=== PATIENT | female | born 1970 | race Caucasian/White ===

== ENCOUNTER 2020-06-21 11:29 | Outpatient (REF) | payer MEDICAID, SELFPAY | END 2020-06-21 11:30 | disposition home or self-care (01) | LOC: HO.LAB 11:29 | PROVIDERS: Visit Provider Internal Medicine | DX: Z20.822 Contact with and (suspected) exposure to COVID-19 (principal) | CPT/HCPCS: C9803; U0003; U0005 ==

== ENCOUNTER 2020-07-12 09:27 | Outpatient (REF) | payer MEDICAID, SELFPAY | END 2020-07-12 09:28 | disposition home or self-care (01) | LOC: HO.LAB 09:27 | PROVIDERS: Visit Provider Internal Medicine | DX: Z20.822 Contact with and (suspected) exposure to COVID-19 (principal) | CPT/HCPCS: C9803; U0003; U0005 ==

== ENCOUNTER 2020-10-04 17:46 | Emergency (ER) | payer MEDICAID, SELFPAY ==
[2020-10-04 18:13] VITALS: BP 139/91; PULSE 99; RESP 16; TEMP 36.7; O2SAT 97; BMI 25.0
[2020-10-04 20:23] LABS: COVID-19 Test Negative (Negative); IDNOW Serial# 9DD0AD1C
--- NOTE | 2020-10-04 20:29 | ED.URI ---
HPI - URI/Sore Throat General Chief Complaint: Upper Respiratory Symptoms Stated Complaint: Headache/ fever last night, Cough Time Seen by Provider: 10/04/20 20:27 Source: patient Mode of arrival: ambulatory Limitations: no limitations History of Present Illness HPI Narrative: Patient is a 49-year-old female the past medical history of asthma who presents with 2 days of sore throat, dry cough, body aches, chest tightness but states she has been eating and drinking somewhat normally. She denies any nausea or vomiting but did have 1 episode of diarrhea 4 days ago which has since resolved. She is not vaccinated against COVID. Related Data Allergies Allergy/AdvReac Type Severity Reaction Status Date / Time vancomycin [VANCOMYCIN] Allergy Intermediate HIVES Verified 10/04/20 18:12 Review of Systems Review of Systems: Yes all other systems are reviewed and are negative [facility] Past Medical History Medical History Asthma HIV (human immunodeficiency virus infection) Social History Social History Advance Directives: No Advance Directives Information Provided: No Patient : No Physical Exam Vital Signs: Vital Signs: Last Vital Signs Temp 98.0 F 10/04/20 18:13 Pulse 99 10/04/20 18:13 Resp 16 10/04/20 18:13 BP 139/91 H 10/04/20 18:13 Pulse Ox 97 10/04/20 18:13 Body Mass Index 25.0 Const: General: cooperative, healthy appearing, comfortable, no acute distress and well developed Orientation/consciousness: patient oriented x3 Limitations: no limitations HENMT: Head: Yes normal to inspection General nose exam: Normal external nose present Face and sinus: Yes normal facial exam and Yes sinus tenderness (Ethmoid) Throat: Yes posterior oropharynx abnormal (Erythematous) Eyes: General: appearance normal, both eyes and all related structures Neck: Neck: Yes normal visual inspection and Yes full ROM Resp: Effort & Inspection: normal respiratory effort and able to speak in complete sentences Auscultation: clear to auscultation bilaterally Skin: General skin exam: no rashes or lesions noted Neuro: General: patient oriented x3 Extrem: General: Yes normal to inspection MDM - URI/Sore Throat Lab Data Attestation: I reviewed the patient's lab results. Labs: Lab Results 10/04/20 Range/Units 19:34 COVID-19 (JONES) Negative (Negative) COVID-19 Clin Com See Note
[2020-10-04 20:45] VITALS: BP 149/84; PULSE 84; RESP 16; TEMP 36.3; O2SAT 98
== END 2020-10-04 21:10 | disposition home or self-care (01) ==
PROVIDERS: Emergency Provider Emergency Medicine Emergency Medical Services
DX: J02.9 Acute pharyngitis, unspecified (principal); M79.10 Myalgia, unspecified site; Z20.822 Contact with and (suspected) exposure to COVID-19; J45.909 Unspecified asthma, uncomplicated; B20 Human immunodeficiency virus [HIV] disease
CPT/HCPCS: 36415; 87635; 99283; 99284

== ENCOUNTER 2021-03-29 21:16 | Emergency (ER) | payer MEDICAID, SELFPAY ==
--- NOTE | ~2021-03-29 | XR_ITS ---
EXAMINATION: XR CHEST CLINICAL INFORMATION: Shortness of breath COMPARISON: 05/29/2018 TECHNIQUE: Frontal view of the chest was obtained. FINDINGS: No significant abnormality is noted involving the heart, lungs, mediastinum, bony thorax or soft tissues. XR/XR chest 1V IMPRESSION: Unremarkable examination.
[2021-03-29 21:19] VITALS: BP 162/92; PULSE 106; RESP 20; TEMP 36.7; O2SAT 100; BMI 27.4
[2021-03-29] MEDS: Acetaminophen 325 MG TABLET 650 MG PO (21:24)
--- NOTE | 2021-03-29 21:53 | ED_ITS ---
HPI - URI/Sore Throat General Chief Complaint: Dyspnea Stated Complaint: SOB/ Covid + Time Seen by Provider: 03/29/21 21:24 Source: patient and casino cashier Mode of arrival: ambulatory Limitations: no limitations History of Present Illness HPI Narrative: 50 yo female unvaccinated hx of asthma and well controlled HIV here with 2 days of headaches, cough, chest tightness. MD elicited complaint: cough and other (headaches, shortness of breath, chest tightness) Pertinent past history: HIV and asthma Onset (ago): day(s) (2) Consistency: constant Severity: moderate Description of mucous: clear Able to tolerate fluids by mouth: Yes Exacerbating factors: other (moving, deep breaths) Relieving factors: nothing Context: other (+ COVID today at [facility]) Associated symptoms: chills, myalgias, headache, cough, chest pain and shortness of breath Treatments prior to arrival: ibuprofen and other (used her inhaler) Related Data Previous Rx's Medication Instructions Recorded prednisone 20 mg tablet 40 mg PO DAILY 4 Days #8 tab 03/29/21 Allergies Allergy/AdvReac Type Severity Reaction Status Date / Time vancomycin Allergy Intermediate HIVES Verified 03/29/21 21:18 [VANCOMYCIN] Review of Systems Verdana 4l Review of Systems: Verdana 4d Verdana 4d Constitutional : No Fever, pos Chills ENT/Mouth : No Hoarseness, No sore throat, No Rhinorrhea Eyes: No Redness, No Discharge, No Vision Changes Cardiovascular : pos Chest Pain, positive SOB, positive Dyspnea on Exertion, No Edema RespiratoryRespiratory : positive Cough, No Sputum, positive Wheezing, Gastrointestinal : No Nausea, No Vomiting, No Diarrhea, No abdominal Pain Genitourinary : No Dysuria, No Hematuria Musculoskeletal : No joint pain, pos Myalgias Skin : No rash Neuro : No Weakness, No Numbness, pos Headache Psych : No anxiety, depression Heme/Lymph: No Bruising, No Bleeding Endocrine : No Polyuria, No Polydipsia All other systems reviewed and are negative PMFSH Past Medical History Attestation statement: The following information was validated with the patient. Medical History Asthma HIV (human immunodeficiency virus infection) Social History Social History (Updated 03/29/21 @ 22:18 by Joanne Bliss DO) Patient Tobacco Use Status: Never used Tobacco Advance Directives: No Advance Directives Information Provided: No Patient : No Physical Exam Verdana 4l Vital Signs: Verdana 4d Verdana 4d Vital Signs: Verdana 4d Verdana 4Bd Last Vital Signs Verdana 4d Auto Body Estimator New 4d Auto Body Estimator New 4d Temp 98.1 F 03/29/21 21:19 Auto Body Estimator New 4d Pulse 106 H 03/29/21 21:19 Auto Body Estimator New 4d Resp 20 03/29/21 21:19 BP 162/92 H 03/29/21 21:19 Pulse Ox 100 03/29/21 21:19 BMI result Body Mass Index 27.4 Appearance: Alert. Oriented X3. No acute distress. Eyes: Pupils equal, round and reactive to light. ENT: Pharynx normal. Neck: Normal inspection. Neck supple. CVS: Normal heart rate and rhythm. Pulses normal. Respiratory: No respiratory distress. Breath sounds normal. Abdomen: Soft and nontender. Skin: Skin warm and dry. Normal skin color. Normal skin turgor. Extremities: No lower extremity edema. No calf ttp Neuro: Oriented X 3. No motor deficit. No sensory deficit. Course Course Course Narrative: negative workup 100% on RA stable for DC mAb form filled out and faxed - patient notified this was to be done. MDM - URI/Sore Throat MDM Narrative Medical decision making narrative: 50 yo female unvaccinated with hx of asthma and HIV - 100% on RA, here with c/o chest pain and dyspnea all day at this time given COVID status could be part of illness will need troponin, CXR, ddimer - likely start on steroids given increased use of INH at home though no wheezes here. Dispo per results and workup. Lab Data Result diagrams: 03/29/21 22:09 03/29/21 22:09 Labs: Lab Results 03/29/21 03/29/21 03/29/21 Range/Units 22:09 22:09 22:09 WBC 5.8 (4.8-10.8) X10*3/uL RBC 4.52 (4.20-5.50) X10*6/uL Hgb 12.7 (12.0-16.0) g/dl Hct 38.4 (37.0-47.0) % MCV 85.0 (80.0-98.0) fL MCH 28.1 (27.0-33.0) pg MCHC 33.1 (31.0-35.0) g/dl RDW 12.1 (11.0-16.0) % Plt Count 308 (160-400) X10*3/uL MPV 10.0 (9.4-12.3) fL Immature Gran % (Auto) 0.3 (0.0-0.4) % Neut % (Auto) 64.1 (45-73) % Lymph % (Auto) 25.3 (20-40) % [place] % (Auto) 9.5 (2-11) % Eos % (Auto) 0.3 (0-4) % Baso % (Auto) 0.5 (0-2) % Lymph # (Auto) 1.5 (1.2-4.9) X10*3/uL [place] # (Auto) 0.6 (0.1-1.2) X10*3/uL Eos # (Auto) 0.0 (0.0-0.4) X10*3/uL Baso # (Auto) 0.0 (0.0-0.2) X10*3/uL Abs Immat Gran (auto) 0.02 (0.00-0.03) X10*3/uL Absolute Neuts (auto) 3.7 (2.0-8.3) x10*3/uL Absolute Nucleated RBC 0.000 (0.0-0.012) X10*3/uL Nucleated RBC % (auto) 0.0 (0.0-0.2) /100WBC D-Dimer High Sensitivty NG/ML Sodium 136 (135-145) mmol/L Potassium 3.6 (3.3-5.1) mmol/L Chloride 100 (96-108) mmol/L Carbon Dioxide 26 (22-29) mmol/L Anion Gap 14 (12-20) BUN 12 (9-16) mg/dL Creatinine 1.06 (0.5-1.4) mg/dL Estim Creat Clear Calc 56.1 Estimated GFR 54 Random Glucose 112 (60-115) mg/dL Calcium 9.6 (8.4-10.2) mg/dL Troponin I High Sens < 3.5 (<3.5-17.0) ng/L 03/29/21 Range/Units 22:09 WBC (4.8-10.8) X10*3/uL RBC (4.20-5.50) X10*6/uL Hgb (12.0-16.0) g/dl Hct (37.0-47.0) % MCV (80.0-98.0) fL MCH (27.0-33.0) pg MCHC (31.0-35.0) g/dl RDW (11.0-16.0) % Plt Count (160-400) X10*3/uL MPV (9.4-12.3) fL Immature Gran % (Auto) (0.0-0.4) % Neut % (Auto) (45-73) % Lymph % (Auto) (20-40) % [place] % (Auto) (2-11) % Eos % (Auto) (0-4) % Baso % (Auto) (0-2) % Lymph # (Auto) (1.2-4.9) X10*3/uL [place] # (Auto) (0.1-1.2) X10*3/uL Eos # (Auto) (0.0-0.4) X10*3/uL Baso # (Auto) (0.0-0.2) X10*3/uL Abs Immat Gran (auto) (0.00-0.03) X10*3/uL Absolute Neuts (auto) (2.0-8.3) x10*3/uL Absolute Nucleated RBC (0.0-0.012) X10*3/uL Nucleated RBC % (auto) (0.0-0.2) /100WBC D-Dimer High Sensitivty < 150 NG/ML Sodium (135-145) mmol/L Potassium (3.3-5.1) mmol/L Chloride (96-108) mmol/L Carbon Dioxide (22-29) mmol/L Anion Gap (12-20) BUN (9-16) mg/dL Creatinine (0.5-1.4) mg/dL Estim Creat Clear Calc Estimated GFR Random Glucose (60-115) mg/dL Calcium (8.4-10.2) mg/dL Troponin I High Sens (<3.5-17.0) ng/L ECG Data Attestation: I personally reviewed and interpreted this ECG as follows: ECG interpretation date: 03/29/21 ECG interpretation time: 22:20 Interpretation: Rate: 78 Rhythm: NSR [place]: normal Normal P waves. Normal KEISHA. Normal QRS complex. ST T wave : normal no JCARLOS qTC: normal prior studies: no acute ischemia The study has been interpreted contemporaneously by me. . Discharge Plan Discharge Clinical Impression: COVID-19 Patient Disposition: Home, Self-Care Instructions: COVID-19 (Coronavirus Disease 2019) (ED) Additional Instructions: return to ED for any worsening symptoms or concerns controlar tate respiraci?n. si le falta tanto el aire que no puede caminar hasta el ba?o, busque atenci?n m?dica Prescriptions: New prednisone 20 mg tablet 40 mg PO DAILY 4 Days Qty: 8 0RF Stand Alone Forms: Work/School Release Interventions: ED Discharge Assessment Last Done: 03/29/21 23:06 Discharge Date/Time: 03/29/21 23:06 Print Language: Sammarinese
--- NOTE | 2021-03-29 22:01 | ECG_ITS ---
Test Reason : DYSPNEA Blood Pressure : / mmHG Vent. Rate : 078 BPM Atrial Rate : 078 BPM P-R Int : 150 ms QRS Dur : 080 ms QT Int : 390 ms P-R-T Axes : 063 080 058 degrees QTc Int : 444 ms Normal sinus rhythm Normal ECG No previous ECGs available Referred By: Joanne Bliss Electronically Signed By:RAMON EVANGELISTA MD
[2021-03-29 22:14] LABS: MANUAL DIFF FLAG NO
[2021-03-29 22:15] LABS: Basophils Percent Auto 0.5 % (0-2); Eosinophils Percent Auto 0.3 % (0-4); Hematocrit 38.4 % (37.0-47.0); Hemoglobin 12.7 g/dl (12.0-16.0); Imm Gran Abs Auto 0.02 X10*3/uL (0.00-0.03); Imm Gran Pct Auto 0.3 % (0.0-0.4); Lymphocytes Absolute Auto 1.5 X10*3/uL (1.2-4.9); Lymphocytes Percent Auto 25.3 % (20-40); Mean Corpuscular HGB Conc 33.1 g/dl (31.0-35.0); Mean Corpuscular Hemoglobin 28.1 pg (27.0-33.0); Monocytes Absolute Auto 0.6 X10*3/uL (0.1-1.2); Monocytes Percent Auto 9.5 % (2-11); Neutrophils Absolute Auto 3.7 x10*3/uL (2.0-8.3); Neutrophils Percent Auto 64.1 % (45-73); Platelet Count 308 X10*3/uL (160-400); Red Blood Count 4.52 X10*6/uL (4.20-5.50); Red Cell Distribution Width 12.1 % (11.0-16.0); White Blood Count 5.8 X10*3/uL (4.8-10.8)
[2021-03-29 22:26] LABS: D Dimer High Sensitivity < 150 NG/ML
[2021-03-29 22:29] LABS: Anion Gap 14 (12-20); Blood Urea Nitrogen 12 mg/dL (9-16); Calcium 9.6 mg/dL (8.4-10.2); Carbon Dioxide 26 mmol/L (22-29); Chloride 100 mmol/L (96-108); Creatinine Clr Calc Pharmacy 56.1; Estimated Glomerular Filt Rate 54; Glucose Random 112 mg/dL (60-115); Potassium 3.6 mmol/L (3.3-5.1); Sodium 136 mmol/L (135-145)
[2021-03-29 22:36] LABS: Troponin-I High Sensitivity < 3.5 ng/L (<3.5-17.0)
[2021-03-29] MEDS: predniSONE 20 MG TABLET 40 MG PO (22:59)
== END 2021-03-29 23:06 | disposition home or self-care (01) ==
PROVIDERS: Emergency Provider Emergency Medicine
DX: U07.1 COVID-19 (principal); R51.9 Headache, unspecified; J45.909 Unspecified asthma, uncomplicated; B20 Human immunodeficiency virus [HIV] disease
CPT/HCPCS: 36415; 71045; 80048; 84484; 85025; 85379; 93005; 99283

== ENCOUNTER 2022-02-04 12:57 | Outpatient (REF) | payer MEDICAID, SELFPAY ==
--- NOTE | ~2022-02-04 | MR_ITS ---
EXAMINATION: MR BRAIN WITHOUT CONTRAST CLINICAL INFORMATION: 1 month of worsening dizziness COMPARISON: None TECHNIQUE: Multiplanar multisequence MR imaging of the brain was obtained without intravenous contrast. FINDINGS: There is no acute infarct on diffusion-weighted imaging. There is no intracranial hemorrhage on iron-sensitive imaging. No extra-axial collection or mass effect/herniation. Normal parenchymal signal characteristics. No hydrocephalus. The ventricles are normal in morphology and size. The major flow voids at the skull base are preserved. The midline structures are normal. The cerebellar tonsils are normally positioned. The craniocervical junction is normal. Marrow signal is within normal limits. There is a large nasal septal defect measuring 2.5 cm anteroposteriorly. Left maxillary sinus mucosal thickening. MR/MR head/brain wo con IMPRESSION: 1. Unremarkable noncontrast MRI of the brain. 2. Large defect of the nasal septum.
== END 2022-02-04 12:58 | disposition home or self-care (01) ==
LOC: HO.MRI 12:57
PROVIDERS: Visit Provider Family Medicine
DX: R42 Dizziness and giddiness (principal)
CPT/HCPCS: 70551

== ENCOUNTER 2022-02-21 12:05 | Outpatient (REF) | payer MEDICAID, SELFPAY | END 2022-02-21 12:06 | disposition home or self-care (01) | LOC: HO.MAMMO 12:05 | PROVIDERS: Visit Provider Family Medicine | DX: Z12.31 Encounter for screening mammogram for malignant neoplasm of breast (principal) | CPT/HCPCS: 77063; 77067 ==

== ENCOUNTER 2022-03-25 15:25 | Outpatient (REF) | payer MEDICAID, SELFPAY ==
[2022-03-25 16:58] LABS: Alanine Aminotransferase 21 U/L (0-31); Albumin Level 4.1 g/dL (3.5-5.0); Alkaline Phosphatase 118 U/L (39-117); Aspartate Amino Transferase 30 U/L (5-31); Bilirubin Direct 0.4 mg/dL (0.0-0.5); Total Protein 7.8 g/dL (6.5-8.0)
[2022-03-26 12:53] LABS: Absolute CD4 Count 475 cells/uL (490-1740); Absolute CD8 Count 870 cells/uL (180-1170); Absolute Lymphocytes 1809 cells/uL (850-3900); CD4 CD8 Ratio 0.55 (0.86-5.00); Percent CD4 Cells 26 % (30-61); Percent CD8 Cells 48 % (12-42)
== END 2022-03-25 15:26 | disposition home or self-care (01) ==
LOC: HO.LAB 15:25
PROVIDERS: Psychiatry & Neurology Neurology; PCP Family Medicine; Visit Provider Internal Medicine
DX: B20 Human immunodeficiency virus [HIV] disease (principal); R42 Dizziness and giddiness
CPT/HCPCS: 36415; 80076; 86360

== ENCOUNTER 2022-05-08 07:50 | Emergency (ER) | payer MEDICAID, SELFPAY ==
--- NOTE | ~2022-05-08 | XR_ITS ---
EXAMINATION: XR CHEST CLINICAL INFORMATION: Shortness of breath COMPARISON: 03/29/2021 TECHNIQUE: Frontal view of the chest was obtained. FINDINGS: No significant abnormality is noted involving the heart, lungs, mediastinum, bony thorax or soft tissues. Some minimal left basilar atelectasis is present. XR/XR chest 1V IMPRESSION: No acute intrathoracic disease.
[2022-05-08 08:08] VITALS: BP 142/96; PULSE 83; RESP 28; TEMP 36.6; O2SAT 95; BMI 27.4
[2022-05-08 08:13] VITALS: PULSE 85; RESP 22; O2SAT 100
[2022-05-08 08:19] LABS: MANUAL DIFF FLAG NO
[2022-05-08] MEDS: Magnesium Sulfate/H2O 2 GM/50 ML PIGGYBACK IV (08:21)
[2022-05-08] MEDS: methylPREDNISolone Sod Succ 125 MG/2 ML VIAL IVPUSH (08:21)
--- NOTE | 2022-05-08 08:21 | ED.URI ---
HPI - URI/Sore Throat General Chief Complaint: Upper Respiratory Symptoms Stated Complaint: Asthma Time Seen by Provider: 05/08/22 08:06 History of Present Illness HPI Narrative: Patient is a 51 year female with a history of asthma with a history HIV currently undergoing retroviral therapy been compliant with medication presented today with having a sudden onset of shortness of breath. Patient has been admitted to the hospital a few years ago. Never been intubated. She is from home. Positive coughing congestion upper respiratory symptoms positive shortness of breath. Patient unable to give detailed history secondary to patient's shortness of breath Related Data Previous Rx's Medication Instructions Recorded prednisone 20 mg tablet 40 mg PO DAILY 4 days #8 tabs 03/29/21 prednisone 20 mg tablet 40 mg PO DAILY #10 tabs 05/08/22 Allergies Allergy/AdvReac Type Severity Reaction Status Date / Time vancomycin [VANCOMYCIN] Allergy Intermediate HIVES Verified 03/29/21 21:18 Review of Systems Review of Systems: Unable to provide review of systems secondary to patient's condition [facility] Past Medical History Attestation statement: The following information was validated with the patient. Medical History Asthma HIV (human immunodeficiency virus infection) Social History Social History Patient Tobacco Use Status: Never used Tobacco Advance Directives: No Advance Directives Information Provided: Yes Physical Exam Vital Signs: Vital Signs: Last Vital Signs Temp 98 F 05/08/22 08:08 Pulse 82 05/08/22 09:59 Resp 17 05/08/22 09:59 BP 125/75 05/08/22 09:59 Pulse Ox 99 05/08/22 09:59 O2 Del Method 05/08/22 09:10 BMI result Body Mass Index 27.4 Appearance: Agitated shortness of breath Eyes: Pupils equal, round and reactive to light. ENT: Pharynx normal. Neck: Normal inspection. Neck supple. No lymph nodes noted. No crepitus. Positive retraction CVS: Normal heart rate and rhythm. Pulses normal. Normal S1 and S2 Respiratory: Positive increased work of breathing minimal wheezing noted. Moving air. Abdomen: Soft and nontender. No rigidity. No distention. good BS x4 Skin: Skin warm and dry. Normal skin color. Normal skin turgor. Extremities: No lower extremity edema. Neurovascular intact to all extremities. No Lacerations. No Rash Neuro: No motor deficit. No sensory deficit. Moving all extermities. No slurred speech Medications Administered Discontinued Medications Generic Name Dose Route Start Last Admin Trade Name Taylor PRN Reason Stop Dose Admin Albuterol Sulfate 10 mg/ 0 mg 05/08/22 08:13 05/08/22 08:23 Ipratropium [place] 0.5 mg INHALE 05/08/22 08:14 2.5 each ONCE ONE Administration Guaifenesin/Codeine Phosphate 10 ml 05/08/22 09:51 05/08/22 09:58 Guaifen/Codeine Sf 200/20/10ml 10 Ml Liquid PO 05/08/22 09:52 10 ml ONCE ONE Administration Magnesium Sulfate 2 gm in 50 mls @ 150 mls/hr 05/08/22 08:13 05/08/22 08:21 Magnesium Sulfate/H2o IV 05/08/22 08:32 150 mls/hr ONCE ONE Administration Methylprednisolone Sodium Succinate 125 mg 05/08/22 08:13 05/08/22 08:21 Methylprednisolone Sod Succ 125 Mg/2 Ml Vial IVPUSH 05/08/22 08:14 125 mg ONCE ONE Administration Medical Decision Making Medical Decision Making [facility] Narrative: Positive wheezing positive shortness of breath very abrupt in onset associated with coughing. A chest x-ray will be obtained. Patient has a history of asthma. History and symptoms not consistent with sepsis. Will start patient on albuterol neb treatment. Steroid. Magnesium. Monitor extremely closely. Chest x-ray to rule out a pneumonia, pneumothorax. Patient's chest x-ray showed no pneumonia no pneumothorax. Because of the extreme shortness of breath a continuous neb was given. Patient monitored very closely. Symptoms improved. Now ambulating without any difficulty. On repeat check patient's lungs are clear. No retraction. Patient wants to go home. Was fall patient on steroid on an outpatient basis. Consider COVID RSV flu. Patient flu swab RSV COVID were all negative In stable condition. Differential Diagnosis Differential Diagnoses: The differential diagnosis associated with the presentation includes Pneumonia, pneumothorax, asthma, congestive heart failure, Admission/Observation Consideration of admission/observation: Escalation of care including admission/observation considered Considered admission at this point patient's symptoms improved dramatically. Will discharge home Lab Data [facility] Lab Attestation statement: I reviewed the patient's lab results. 05/08/22 08:08 05/08/22 08:08 Labs: Lab Results 05/08/22 05/08/22 05/08/22 Range/Units 08:08 08:08 08:24 WBC 6.7 (4.8-10.8) X10*3/uL RBC 5.33 (4.20-5.50) X10*6/uL Hgb 15.2 (12.0-16.0) g/dl Hct 47.1 H D (37.0-47.0) % MCV 88.4 (80.0-98.0) fL MCH 28.5 (27.0-33.0) pg MCHC 32.3 (31.0-35.0) g/dl RDW 12.7 (11.0-16.0) % Plt Count 284 (160-400) X10*3/uL MPV 9.6 (9.4-12.3) fL Immature Gran % (Auto) 0.6 H (0.0-0.4) % Neut % (Auto) 56.6 (45-73) % Lymph % (Auto) 29.9 (20-40) % [place] % (Auto) 9.6 (2-11) % Eos % (Auto) 2.4 (0-4) % Baso % (Auto) 0.9 (0-2) % Lymph # (Auto) 2.0 (1.2-4.9) X10*3/uL [place] # (Auto) 0.6 (0.1-1.2) X10*3/uL Eos # (Auto) 0.2 (0.0-0.4) X10*3/uL Baso # (Auto) 0.1 (0.0-0.2) X10*3/uL Abs Immat Gran (auto) 0.04 H (0.00-0.03) X10*3/uL Absolute Neuts (auto) 3.8 (2.0-8.3) x10*3/uL Absolute Nucleated RBC 0.000 (0.0-0.012) X10*3/uL Nucleated RBC % (auto) 0.0 (0.0-0.2) /100WBC Sodium 138 (135-145) mmol/L Potassium 4.4 D (3.3-5.1) mmol/L Chloride 101 (96-108) mmol/L Carbon Dioxide 25 (22-29) mmol/L Anion Gap 16 (12-20) BUN 15 (9-16) mg/dL Creatinine 1.30 (0.5-1.4) mg/dL Estim Creat Clear Calc 45.2 Estimated GFR 43 Random Glucose 101 (60-115) mg/dL Calcium 9.4 (8.4-10.2) mg/dL Influenza Type A (PCR) NEGATIVE (Negative) Influenza Type B (PCR) NEGATIVE (Negative) RSV RNA Qual (PCR) NEGATIVE (Negative) SARS-CoV-2 RNA (RT-PCR) NEGATIVE (Negative) Independent Interpretation I performed an independent interpretation of an: Plain X-Ray Interpretation: No acute infiltrate External Record Review External record reviewed: Inpatient record Critical Care Time Critical Care Time Critical Care Time: Yes Total Critical Care Time: 40 Attestation: I have personally provided 40 minutes of critical care time exclusive of time spent on separately billable procedures. Time includes review of lab data, radiology results, discussion with consultants, and monitoring for potential decompensation. Interventions were performed as documented above Discharge Plan Discharge Clinical Impression: Asthma Patient Disposition: Home, Self-Care Instructions: Asthma (ED) Prescriptions: New prednisone 20 mg tablet 40 mg PO DAILY Qty: 10 0RF No Action prednisone 20 mg tablet 40 mg PO DAILY 4 Days Qty: 8 0RF Referrals: Jessica Goldstein MD [Primary Care Provider] - Stand Alone Forms: Work/School Release
[2022-05-08 08:23] LABS: Basophils Absolute Auto 0.1 X10*3/uL (0.0-0.2); Basophils Percent Auto 0.9 % (0-2); Eosinophils Absolute Auto 0.2 X10*3/uL (0.0-0.4); Eosinophils Percent Auto 2.4 % (0-4); Hematocrit 47.1 % (37.0-47.0); Hemoglobin 15.2 g/dl (12.0-16.0); Imm Gran Abs Auto 0.04 X10*3/uL (0.00-0.03); Imm Gran Pct Auto 0.6 % (0.0-0.4); Lymphocytes Percent Auto 29.9 % (20-40); Mean Corpuscular HGB Conc 32.3 g/dl (31.0-35.0); Mean Corpuscular Hemoglobin 28.5 pg (27.0-33.0); Mean Corpuscular Volume 88.4 fL (80.0-98.0); Mean Platelet Volume 9.6 fL (9.4-12.3); Monocytes Absolute Auto 0.6 X10*3/uL (0.1-1.2); Monocytes Percent Auto 9.6 % (2-11); Neutrophils Absolute Auto 3.8 x10*3/uL (2.0-8.3); Neutrophils Percent Auto 56.6 % (45-73); Platelet Count 284 X10*3/uL (160-400); Red Blood Count 5.33 X10*6/uL (4.20-5.50); Red Cell Distribution Width 12.7 % (11.0-16.0); White Blood Count 6.7 X10*3/uL (4.8-10.8)
[2022-05-08 08:34] LABS: Anion Gap 16 (12-20); Blood Urea Nitrogen 15 mg/dL (9-16); Calcium 9.4 mg/dL (8.4-10.2); Carbon Dioxide 25 mmol/L (22-29); Chloride 101 mmol/L (96-108); Creatinine Clr Calc Pharmacy 45.2; Estimated Glomerular Filt Rate 43; Glucose Random 101 mg/dL (60-115); Potassium 4.4 mmol/L (3.3-5.1); Sodium 138 mmol/L (135-145)
[2022-05-08 09:05] VITALS: PULSE 88; RESP 20; O2SAT 95
[2022-05-08 09:10] VITALS: O2SAT 100
--- NOTE | 2022-05-08 09:11 | PC.NURSE ---
ls clear except for lll crackles, sr on monitor, skin wpd, reports improvement. no sob
[2022-05-08 09:24] LABS: Influenza A PCR NEGATIVE (Negative); Influenza B PCR NEGATIVE (Negative); Resp Syncy Virus RNA Qual PCR NEGATIVE (Negative); SARS COV2 PCR INHOUSE NEGATIVE (Negative)
[2022-05-08] MEDS: guaiFEN/Codeine SF 200/20/10ML 10 ML LIQUID PO (09:58)
[2022-05-08 09:59] VITALS: BP 125/75; PULSE 82; RESP 17; O2SAT 99
[2022-05-08 10:45] VITALS: PULSE 81; RESP 17; O2SAT 99
== END 2022-05-08 10:54 | disposition home or self-care (01) ==
PROVIDERS: Emergency Provider Emergency Medicine Emergency Medical Services; PCP Family Medicine
DX: J45.909 Unspecified asthma, uncomplicated (principal); R06.02 Shortness of breath; Z20.822 Contact with and (suspected) exposure to COVID-19; Z20.828 Contact with and (suspected) exposure to other viral communicable diseases; B20 Human immunodeficiency virus [HIV] disease; Z79.899 Other long term (current) drug therapy
CPT/HCPCS: 0241U; 71045; 80048; 85025; 94640; 96374; 96375; 99284; 99285; J2930; J3475

== ENCOUNTER 2023-01-21 11:21 | Outpatient (REF) | payer MEDICAID, SELFPAY ==
[2023-01-21 13:21] LABS: MANUAL DIFF FLAG NO
[2023-01-21 13:24] LABS: Appearance Urine Cloudy; Color Urine Yellow; Glucose Urine UA Negative (Negative); Leukocyte Esterase Urine Large (3+) (Negative); Nitrite Urine Positive (Negative); PH 5.5 (5.0-9.0); Specific Gravity - Urine 1.015 (1.005-1.025); UMIC TRIGGER UA YES; Urine Blood Trace (Negative); Urine Ketones Negative (Negative); Urine Protein Trace mg/dL (Neg-Trace)
[2023-01-21 13:27] LABS: Bacteria Urine 4+ (None Seen); Hyaline Casts Urine 0-2 /LPF (0-2); RBC Urine 0-2 /HPF (0-2); WBC Urine >50 /HPF (0-5)
[2023-01-21 13:30] LABS: Basophils Percent Auto 0.7 % (0-2); Eosinophils Absolute Auto 0.2 X10*3/uL (0.0-0.4); Eosinophils Percent Auto 3.6 % (0-4); Hematocrit 42.2 % (37.0-47.0); Hemoglobin 13.4 g/dl (12.0-16.0); Imm Gran Abs Auto 0.03 X10*3/uL (0.00-0.03); Imm Gran Pct Auto 0.7 % (0.0-0.4); Lymphocytes Absolute Auto 1.4 X10*3/uL (1.2-4.9); Lymphocytes Percent Auto 33.7 % (20-40); Mean Corpuscular HGB Conc 31.8 g/dl (31.0-35.0); Mean Corpuscular Hemoglobin 27.2 pg (27.0-33.0); Mean Corpuscular Volume 85.8 fL (80.0-98.0); Mean Platelet Volume 10.5 fL (9.4-12.3); Monocytes Absolute Auto 0.5 X10*3/uL (0.1-1.2); Monocytes Percent Auto 10.8 % (2-11); Neutrophils Absolute Auto 2.1 x10*3/uL (2.0-8.3); Neutrophils Percent Auto 50.5 % (45-73); Platelet Count 232 X10*3/uL (160-400); Red Blood Count 4.92 X10*6/uL (4.20-5.50); Red Cell Distribution Width 14.7 % (11.0-16.0); White Blood Count 4.2 X10*3/uL (4.8-10.8)
[2023-01-21 13:43] LABS: Cholesterol 173 mg/dL (<200); HDL Cholesterol 41 mg/dL (>40); LDL Cholesterol Calculated 103 mg/dL (<100); Triglycerides 147 mg/dL (<150)
[2023-01-21 13:47] LABS: Alanine Aminotransferase 49 U/L (0-31); Albumin Level 3.6 g/dL (3.5-5.0); Alkaline Phosphatase 116 U/L (39-117); Anion Gap 10 (12-20); Aspartate Amino Transferase 76 U/L (5-31); Bilirubin Total 0.6 mg/dL (0.0-1.0); Blood Urea Nitrogen 7 mg/dL (9-16); Calcium 9.7 mg/dL (8.4-10.2); Carbon Dioxide 30 mmol/L (22-29); Chloride 104 mmol/L (96-108); Estimated Glomerular Filt Rate > 60; Glucose Random 100 mg/dL (60-115); Sodium 140 mmol/L (135-145); Total Protein 9.5 g/dL (6.5-8.0)
[2023-01-21 14:07] LABS: Reflex LDLD? No
[2023-01-22 18:09] LABS: HIV RNA PCR Qn Copies 690000 copies/mL (NOT DETECTED); HIV RNA PCR Qn Log Copies 5.84 (NOT DETECTED)
[2023-01-23 22:59] LABS: TS Negative Control Passed; TS Panel A 0; TS Panel B 2; TS Positive Control Passed; TSpotTB Negative (Negative)
[2023-01-24 11:59] LABS: Absolute CD3 Count 1015 cells/uL (840-3060); Absolute CD4 Count 162 cells/uL (490-1740); Absolute CD8 Count 832 cells/uL (180-1170); Absolute Lymphocytes 1264 cells/uL (850-3900); Percent CD3 Cells 80 % (57-85); Percent CD4 Cells 13 % (30-61); Percent CD8 Cells 66 % (12-42)
[2023-01-24 12:34] LABS: RPR Rapid Plasma Reagin NON-REACTIVE (NON-REACTIVE)
== END 2023-01-21 11:22 | disposition home or self-care (01) ==
LOC: HO.HHCL 11:21
PROVIDERS: Visit Provider Internal Medicine
DX: B20 Human immunodeficiency virus [HIV] disease (principal)
CPT/HCPCS: 36415; 80053; 80061; 81001; 85025; 86359; 86360; 86481; 86592; 87536

== ENCOUNTER 2023-05-23 10:40 | Outpatient (REF) | payer MEDICAID, SELFPAY ==
[2023-05-23 11:36] LABS: MANUAL DIFF FLAG NO
[2023-05-23 11:40] LABS: Basophils Absolute Auto 0.1 X10*3/uL (0.0-0.2); Basophils Percent Auto 0.7 % (0-2); Eosinophils Absolute Auto 0.1 X10*3/uL (0.0-0.4); Eosinophils Percent Auto 1.9 % (0-4); Hematocrit 40.9 % (37.0-47.0); Hemoglobin 13.3 g/dl (12.0-16.0); Imm Gran Abs Auto 0.03 X10*3/uL (0.00-0.03); Imm Gran Pct Auto 0.4 % (0.0-0.4); Lymphocytes Absolute Auto 2.3 X10*3/uL (1.2-4.9); Lymphocytes Percent Auto 31.6 % (20-40); Mean Corpuscular HGB Conc 32.5 g/dl (31.0-35.0); Mean Corpuscular Hemoglobin 28.5 pg (27.0-33.0); Mean Corpuscular Volume 87.6 fL (80.0-98.0); Mean Platelet Volume 9.5 fL (9.4-12.3); Monocytes Absolute Auto 0.8 X10*3/uL (0.1-1.2); Monocytes Percent Auto 11.1 % (2-11); Neutrophils Percent Auto 54.3 % (45-73); Platelet Count 300 X10*3/uL (160-400); Red Blood Count 4.67 X10*6/uL (4.20-5.50); Red Cell Distribution Width 13.1 % (11.0-16.0); White Blood Count 7.3 X10*3/uL (4.8-10.8)
[2023-05-23 12:41] LABS: Alanine Aminotransferase 28 U/L (0-31); Albumin Level 4.4 g/dL (3.5-5.0); Alkaline Phosphatase 84 U/L (39-117); Anion Gap 13 (12-20); Aspartate Amino Transferase 35 U/L (5-31); Bilirubin Total 0.8 mg/dL (0.0-1.0); Blood Urea Nitrogen 13 mg/dL (9-16); Calcium 9.9 mg/dL (8.4-10.2); Carbon Dioxide 28 mmol/L (22-29); Chloride 101 mmol/L (96-108); Estimated Glomerular Filt Rate > 60; Glucose Random 81 mg/dL (60-115); Potassium 3.8 mmol/L (3.3-5.1); Sodium 138 mmol/L (135-145); Total Protein 8.9 g/dL (6.5-8.0)
[2023-05-23 12:45] LABS: TSH reflex Free T4 5.52 uIU/mL (0.32-4.0)
[2023-05-24 12:24] LABS: Absolute CD3 Count 1918 cells/uL (840-3060); Absolute CD4 Count 401 cells/uL (490-1740); Absolute CD8 Count 1496 cells/uL (180-1170); Absolute Lymphocytes 2460 cells/uL (850-3900); CD4 CD8 Ratio 0.27 (0.86-5.00); Percent CD3 Cells 78 % (57-85); Percent CD4 Cells 16 % (30-61); Percent CD8 Cells 61 % (12-42)
[2023-05-24 15:33] LABS: HIV RNA PCR Qn Copies <20 DETECTED copies/mL (NOT DETECTED); HIV RNA PCR Qn Log Copies <1.30 DETECTED (NOT DETECTED)
== END 2023-05-23 10:41 | disposition home or self-care (01) ==
LOC: HO.HHCL 10:40
PROVIDERS: Visit Provider Internal Medicine
DX: B20 Human immunodeficiency virus [HIV] disease (principal); E03.9 Hypothyroidism, unspecified
CPT/HCPCS: 36415; 80053; 84439; 84443; 85025; 86359; 86360; 87536

== ENCOUNTER 2023-09-25 11:02 | Outpatient (REF) | payer MEDICAID, SELFPAY ==
[2023-09-26 09:31] LABS: ~HepC Num1 0.22 S/CO (0.00-0.79); ~Hepatitis C Antibody Nonreactive (Nonreactive)
[2023-09-27 16:43] LABS: HIV RNA PCR Qn Copies 635 copies/mL (NOT DETECTED)
[2023-09-30 15:18] LABS: Absolute CD3 Count 1998 cells/uL (840-3060); Absolute CD4 Count 476 cells/uL (490-1740); Absolute CD8 Count 1481 cells/uL (180-1170); Absolute Lymphocytes 2474 cells/uL (850-3900); CD4 CD8 Ratio 0.32 (0.86-5.00); Percent CD3 Cells 81 % (57-85); Percent CD4 Cells 19 % (30-61); Percent CD8 Cells 60 % (12-42)
== END 2023-09-25 11:03 | disposition home or self-care (01) ==
LOC: HO.HHCL 11:02
PROVIDERS: Visit Provider Internal Medicine
DX: B20 Human immunodeficiency virus [HIV] disease (principal)
CPT/HCPCS: 36415; 86359; 86360; 86803; 87536

== ENCOUNTER 2024-01-07 11:10 | Outpatient (REF) | payer MEDICAID, SELFPAY ==
[2024-01-07 13:18] LABS: MANUAL DIFF FLAG NO
[2024-01-07 13:29] LABS: Basophils Absolute Auto 0.1 X10*3/uL (0.0-0.2); Basophils Percent Auto 1.1 % (0-2); Eosinophils Absolute Auto 0.1 X10*3/uL (0.0-0.4); Eosinophils Percent Auto 2.3 % (0-4); Hematocrit 40.4 % (37.0-47.0); Hemoglobin 13.4 g/dl (12.0-16.0); Imm Gran Abs Auto 0.02 X10*3/uL (0.00-0.03); Imm Gran Pct Auto 0.4 % (0.0-0.4); Lymphocytes Absolute Auto 1.8 X10*3/uL (1.2-4.9); Lymphocytes Percent Auto 34.7 % (20-40); Mean Corpuscular HGB Conc 33.2 g/dl (31.0-35.0); Mean Corpuscular Hemoglobin 28.4 pg (27.0-33.0); Mean Corpuscular Volume 85.6 fL (80.0-98.0); Mean Platelet Volume 10.2 fL (9.4-12.3); Monocytes Absolute Auto 0.6 X10*3/uL (0.1-1.2); Monocytes Percent Auto 10.7 % (2-11); Neutrophils Absolute Auto 2.7 x10*3/uL (2.0-8.3); Neutrophils Percent Auto 50.8 % (45-73); Platelet Count 272 X10*3/uL (160-400); Red Blood Count 4.72 X10*6/uL (4.20-5.50); Red Cell Distribution Width 13.3 % (11.0-16.0); White Blood Count 5.3 X10*3/uL (4.8-10.8)
[2024-01-07 13:34] LABS: Estimated Average Glucose 117 mg/dL; Hemoglobin A1C 132.3317 umol/L; Hemoglobin A1c % 5.7 % (<6.0); Total Hemoglobin (HGBA1C) 3410.7443 umol/L
[2024-01-07 14:00] LABS: Alanine Aminotransferase 32 U/L (0-31); Albumin Level 4.1 g/dL (3.5-5.0); Alkaline Phosphatase 109 U/L (39-117); Anion Gap 14 (12-20); Aspartate Amino Transferase 41 U/L (5-31); Bilirubin Total 0.7 mg/dL (0.0-1.0); Blood Urea Nitrogen 14 mg/dL (9-16); Calcium 9.9 mg/dL (8.4-10.2); Carbon Dioxide 26 mmol/L (22-29); Chloride 102 mmol/L (96-108); Estimated Glomerular Filt Rate > 60; Glucose Random 79 mg/dL (60-115); Potassium 3.9 mmol/L (3.3-5.1); Sodium 138 mmol/L (135-145); Total Protein 8.1 g/dL (6.5-8.0)
[2024-01-07 14:01] LABS: TSH reflex Free T4 3.68 uIU/mL (0.32-4.0); Vitamin D 25-OH Total 36.4 ng/mL (>30)
[2024-01-07 14:10] LABS: HBS Num1 9.13 mIU/mL (0-7.99); HBc Num1 0.31 S/CO (0.00-0.79); HBsAGNum1 0.25 S/CO (0.00-0.99); Hepatitis B Core Antibody Nonreactive (Nonreactive); Hepatitis B Surface Antigen Negative (Negative)
[2024-01-07 14:12] LABS: Hepatitis A Antibody IgG REACTIVE (Nonreactive)
[2024-01-07 14:28] LABS: Folate 10.9 ng/mL (> or = 4.0); Vitamin B12 219 pg/mL (200-900)
[2024-01-08 06:10] LABS: HBS Num2 9.37 mIU/mL (0-7.99)
[2024-01-08 06:11] LABS: HBS Num3 9.28 mIU/mL (0-7.99); ~Hepatitis B Surface Antibody GRAYZONE (Nonreactive)
[2024-01-08 08:52] LABS: Mumps Virus IgG Antibody <9.00 AU/mL; Rubeola IgG (Measles) >300.00 AU/mL; Toxoplasma IgG Antibody <7.20 IU/mL; Toxoplasma IgM Antibody <8.00 AU/mL
[2024-01-08 17:43] LABS: HIV RNA PCR Qn Copies 53 copies/mL (NOT DETECTED); HIV RNA PCR Qn Log Copies 1.72 (NOT DETECTED)
[2024-01-08 19:03] LABS: Lyme Blot 1.64 index
[2024-01-08 22:58] LABS: Varicella IgG Antibody 3.06 S/CO
[2024-01-09 07:33] LABS: RPR Rapid Plasma Reagin NON-REACTIVE (NON-REACTIVE)
[2024-01-09 12:30] LABS: Lyme Abs Screen POSITIVE
[2024-01-13 11:54] LABS: 18 KD (IgG) Band NON-REACTIVE; 23 KD (IgG) Band NON-REACTIVE; 23 KD (IgM) Band NON-REACTIVE; 28 KD (IgG) Band NON-REACTIVE; 30 KD (IgG) Band NON-REACTIVE; 39 KD (IgM) Band NON-REACTIVE; 39KD (IgG) Band NON-REACTIVE; 41 KD (IgM) Band NON-REACTIVE; 41KD (IgG) Band REACTIVE; 45 KD (IgG) Band NON-REACTIVE; 58 KD (IgG) Band REACTIVE; 66 KD (IgG) Band NON-REACTIVE; 93 KD (IgG) Band NON-REACTIVE; Lyme IgG Blot Interp NEGATIVE (NEGATIVE); Lyme IgM Blot Interp NEGATIVE (NEGATIVE)
[2024-01-13 14:14] LABS: Absolute CD3 Count 1442 cells/uL (840-3060); Absolute CD4 Count 445 cells/uL (490-1740); Absolute CD8 Count 998 cells/uL (180-1170); Absolute Lymphocytes 1718 cells/uL (850-3900); CD4 CD8 Ratio 0.45 (0.86-5.00); Percent CD3 Cells 84 % (57-85); Percent CD4 Cells 26 % (30-61); Percent CD8 Cells 58 % (12-42)
== END 2024-01-07 11:11 | disposition home or self-care (01) ==
LOC: HO.HHCL 11:10
PROVIDERS: Referring Provider Internal Medicine; Visit Provider Internal Medicine
DX: Z21 Asymptomatic human immunodeficiency virus [HIV] infection status (principal); E55.9 Vitamin D deficiency, unspecified; M79.604 Pain in right leg; M79.605 Pain in left leg; R79.89 Other specified abnormal findings of blood chemistry
CPT/HCPCS: 36415; 80053; 82306; 82607; 82746; 83036; 84443; 85025; 86359; 86360; 86592; 86617; 86618; 86704; 86706; 86708; 86735; 86762; 86765; 86777; 86778; 86787; 87340; 87536

== ENCOUNTER 2024-02-11 09:41 | Outpatient (REF) | payer MEDICAID, SELFPAY ==
--- NOTE | ~2024-02-11 | US_ITS ---
EXAMINATION: US ABDOMEN COMPLETE CLINICAL INFORMATION: Right upper quadrant pain/transaminitis. COMPARISON: CT abdomen and pelvis 11/17/2017. TECHNIQUE: Real-time imaging of the abdominal viscera. FINDINGS: PANCREAS: Visualized portions are unremarkable. ABDOMINAL AORTA: The proximal, mid, and distal segments are normal in caliber. INFERIOR VENA CAVA: Visualized portions are normal. LIVER: The liver is normal in size. The liver contour is normal. Increased echogenicity of the liver parenchyma, this can be seen in the setting of hepatic steatosis or liver parenchymal disease. No focal hepatic lesion. There is no intrahepatic biliary duct dilatation seen. GALLBLADDER: The gallbladder is physiologically distended without evidence of stones, sludge, polyps, wall thickening or pericholecystic fluid. COMMON BILE DUCT: Normal in caliber measuring 0.27 cm in diameter. RIGHT KIDNEY: No hydronephrosis. No renal calculi or focal parenchymal lesions. The kidney measures 9.7 cm in maximum dimension. LEFT KIDNEY: No hydronephrosis. No renal calculi or focal parenchymal lesions. The kidney measures 9.3 cm in maximum dimension. SPLEEN: The spleen measures 9.5 cm in maximum dimension. FREE FLUID: None. US/US abdomen complete IMPRESSION: Increased echogenicity of the liver parenchyma, this can be seen in the setting of hepatic steatosis or liver parenchymal disease. No ultrasound explanation for patient's pain symptoms. No evidence of gallbladder disease. Electronically signed by: Kyaw Palomares MD 02/22/2024 01:34 PM EST
== END 2024-02-11 09:42 | disposition home or self-care (01) ==
LOC: HO.HMGCX 09:41
PROVIDERS: PCP Family Medicine; Visit Provider Internal Medicine
DX: R74.01 Elevation of levels of liver transaminase levels (principal)
CPT/HCPCS: 76700

== ENCOUNTER 2024-09-13 09:35 | Outpatient (REF) | payer MEDICAID, SELFPAY ==
[2024-09-13 11:33] LABS: MANUAL DIFF FLAG NO
[2024-09-13 11:42] LABS: Hematocrit 40.7 % (37.0-47.0); Hemoglobin 13.0 g/dl (12.0-16.0); Imm Gran Abs Auto 0.04 X10*3/uL (0.00-0.03); Imm Gran Pct Auto 0.6 % (0.0-0.4); Lymphocytes Absolute Auto 1.9 X10*3/uL (1.2-4.9); Mean Corpuscular HGB Conc 31.9 g/dl (31.0-35.0); Mean Corpuscular Hemoglobin 29.0 pg (27.0-33.0); Mean Corpuscular Volume 90.6 fL (80.0-98.0); NRBC Abs Auto 0.000 X10*3/uL (0.0-0.012); NRBC Pct Auto 0.0 /100WBC (0.0-0.2); Platelet Count 288 X10*3/uL (160-400); Red Blood Count 4.49 X10*6/uL (4.20-5.50); White Blood Count 7.1 X10*3/uL (4.8-10.8)
[2024-09-13 12:12] LABS: Alanine Aminotransferase 34 U/L (0-31); Albumin Level 4.3 g/dL (3.5-5.0); Alkaline Phosphatase 86 U/L (39-117); Anion Gap 13 (12-20); Aspartate Amino Transferase 43 U/L (5-31); Blood Urea Nitrogen 13 mg/dL (9-16); Calcium 9.1 mg/dL (8.4-10.2); Carbon Dioxide 27 mmol/L (22-29); Chloride 106 mmol/L (96-108); Estimated Glomerular Filt Rate 50; Gamma Glutamyl Transpeptidase 27 U/L (7-33); Potassium 3.2 mmol/L (3.3-5.1); Sodium 143 mmol/L (135-145); Total Protein 7.8 g/dL (6.5-8.0)
[2024-09-13 12:15] LABS: Cholesterol 225 mg/dL (<200); HDL Cholesterol 71 mg/dL (>40); Triglycerides 173 mg/dL (<150)
[2024-09-13 12:32] LABS: ~HepC Num1 0.16 S/CO (0.00-0.79); ~Hepatitis C Antibody Nonreactive (Nonreactive)
[2024-09-13 12:34] LABS: Reflex LDLD? No
[2024-09-14 15:49] LABS: HIV RNA PCR Qn Copies <20 DETECTED copies/mL (NOT DETECTED); HIV RNA PCR Qn Log Copies <1.30 DETECTED (NOT DETECTED)
[2024-09-16 17:43] LABS: Absolute CD3 Count 1520 cells/uL (840-3060); Absolute CD8 Count 978 cells/uL (180-1170); Percent CD3 Cells 83 % (57-85); Percent CD8 Cells 53 % (12-42)
== END 2024-09-13 09:36 | disposition home or self-care (01) ==
LOC: HO.HHCL 09:35
PROVIDERS: PCP Internal Medicine; Visit Provider Internal Medicine
DX: Z11.59 Encounter for screening for other viral diseases (principal); Z21 Asymptomatic human immunodeficiency virus [HIV] infection status; G62.9 Polyneuropathy, unspecified
CPT/HCPCS: 36415; 80053; 80061; 80076; 82248; 82977; 85025; 86359; 86360; 86803; 87536

== ENCOUNTER 2024-12-06 12:37 | Emergency (ER) | payer MEDICAID, SELFPAY ==
--- NOTE | ~2024-12-06 | XR_ITS ---
EXAMINATION: XR CHEST CLINICAL INFORMATION: [place] COMPARISON: May 08, 2022 TECHNIQUE: Frontal view of the chest was obtained. FINDINGS: No significant abnormality is noted involving the heart, lungs, mediastinum, bony thorax or soft tissues. There is a 3 mm density in the right upper lateral lung likely representing a calcified granuloma that was present on the prior study as well. XR/XR chest 1V IMPRESSION: No acute disease. Electronically signed by: Jacky Sandoval MD 12/06/2024 01:28 PM EDT
[2024-12-06 13:10] VITALS: BP 140/82; PULSE 119; RESP 18; TEMP 37; BMI 23.8
--- NOTE | 2024-12-06 13:22 | ED_ITS ---
HPI - General Adult General Chief complaint: Back Pain/Injury Stated complaint: back pain History of Present Illness HPI narrative: Left before completion of treatment by ED provider. Related Data Previous Rx's ?Medication ?Instructions ?Recorded prednisone 20 mg tablet 40 mg (2 x 20 mg) PO DAILY 4 days 03/29/21 #8 tabs prednisone 20 mg tablet 40 mg (2 x 20 mg) PO DAILY # 10 tabs 05/08/22 ketorolac 10 mg tablet 10 mg PO Q6H PRN pain #20 ta bs 12/06/24 Allergies Allergy/AdvReac Type Severity Reaction Status Date / Time vancomycin (VANCOMYCIN) Allergy Intermediate HIVES Verified 12/06/24 18:35 PMFSH Past Medical History Medical History Asthma HIV (human immunodeficiency virus infection) Social History Social History Patient Tobacco Use Status: Never used Tobacco Advance Directives: No Advance Directives Information Provided: Yes Physical Exam ED Vital Signs: Vital Signs - 24 hr 12/06/24 13:10 Temperature 98.6 F Pulse Rate 119 H Respiratory Rate 18 Blood Pressure 140/82 H Oxygen Delivery Method Room Air BMI result Body Mass Index 23.8 Course Course Course Narrative: RME: 53 year female presents to ED for headache, back pain, coughing, and SOB. Patient patient is hyperventilating making herself wheeze. Vital signs are stable. ED bronchodilator ordered. Labs EKG ordered Medications Administered Discontinued Medications Generic Name Dose Route Start Last Admin Trade Name Freq PRN Reason Stop Dose Admin Acetaminophen 650 mg 12/06/24 14:14 12/06/24 14:29 Acetaminophen 325 Mg Tablet PO 12/06/24 14:15 650 mg ONCE ONE Administration Medical Decision Making Lab Data 12/06/24 13:51 12/06/24 13:51 Labs: Lab Results 12/06/24 12/06/24 Range/Units 13:37 13:51 WBC 6.4 (4.8-10.8) X10*3/uL RBC 4.31 (4.20-5.50) X10*6/uL Hgb 12.8 (12.0-16.0) g/dl Hct 37.5 (37.0-47.0) % MCV 87.0 (80.0-98.0) fL MCH 29.7 (27.0-33.0) pg MCHC 34.1 (31.0-35.0) g/dl RDW 13.0 (11.0-16.0) % Plt Count 265 (160-400) X10*3/uL MPV 9.4 (9.4-12.3) fL Immature Gran % (Auto) 0.5 H (0.0-0.4) % Neut % (Auto) 50.8 (45-73) % Lymph % (Auto) 28.3 (20-40) % [place] % (Auto) 12.6 H (2-11) % Eos % (Auto) 7.0 H (0-4) % Baso % (Auto) 0.8 (0-2) % Lymph # (Auto) 1.8 (1.2-4.9) X10*3/uL [place] # (Auto) 0.8 (0.1-1.2) X10*3/uL Eos # (Auto) 0.5 H (0.0-0.4) X10*3/uL Baso # (Auto) 0.1 (0.0-0.2) X10*3/uL Abs Immat Gran (auto) 0.03 (0.00-0.03) X10*3/uL Absolute Neuts (auto) 3.3 (2.0-8.3) x10*3/uL Absolute Nucleated RBC 0.000 (0.0-0.012) X10*3/uL Nucleated RBC % (auto) 0.0 (0.0-0.2) /100WBC PT 9.8 L (10.9-12.4) SEC INR 0.9 (0.9-1.1) APTT 25.9 L (26.7-34.1) SEC Sodium 141 (135-145) mmol/L Potassium 4.2 D (3.3-5.1) mmol/L Chloride 110 H (96-108) mmol/L Carbon Dioxide 23 (22-29) mmol/L Anion Gap 12 (12-20) BUN 14 (9-16) mg/dL Creatinine 1.11 (0.5-1.4) mg/dL Estim Creat Clear Calc 45.2 Estimated GFR 51 Random Glucose 116 H (60-115) mg/dL Calcium 8.5 D (8.4-10.2) mg/dL Total Bilirubin 0.4 (0.0-1.0) mg/dL AST 57 H (5-31) U/L ALT 34 H (0-31) U/L Alkaline Phosphatase 120 H (39-117) U/L Troponin I High Sens < 2.7 (<3.5-17.0) ng/L NT-Pro-B Natriuret Pep 84.3 (<300) pg/mL Total Protein 7.8 (6.5-8.0) g/dL Albumin 4.3 (3.5-5.0) g/dL COVID-19 (JONES) Negative (Negative) COVID-19 Clin Com See Note Influenza Type A (PEPE) Negative (Negative) Influenza Type B (PEPE) Negative (Negative) Influenza A & B Note See Note Discharge Plan Discharge Clinical Impression: Headache Patient Disposition: Left W/O Completing Treatment Prescriptions: No Action prednisone 20 mg tablet 40 mg PO DAILY 4 Days Qty: 8 0RF prednisone 20 mg tablet 40 mg PO DAILY Qty: 10 0RF ketorolac 10 mg tablet 10 mg PO Q6H PRN (Reason: pain) Qty: 20 0RF Rx Instructions: maximum total duration of 5 days from all oral, intranasal, or parenteral formulations. The patient received an intramuscular dose of Toradol here in the emergency room. Discharge Date/Time: 12/06/24 16:12
--- NOTE | 2024-12-06 13:39 | ECG_ITS ---
Test Reason : sob Blood Pressure : */* mmHG Vent. Rate : 104 BPM Atrial Rate : 104 BPM P-R Int : 116 ms QRS Dur : 70 ms QT Int : 358 ms P-R-T Axes : 64 71 62 degrees QTcB Int : 470 ms Sinus tachycardia Otherwise normal ECG When compared with ECG of 29-Mar-2021 22:12, No significant change was found Referred By: Randy Rico Electronically Signed By: RAMON EVANGELISTA MD
[2024-12-06 13:56] LABS: MANUAL DIFF FLAG NO
[2024-12-06 14:00] LABS: Hematocrit 37.5 % (37.0-47.0); Hemoglobin 12.8 g/dl (12.0-16.0); Imm Gran Abs Auto 0.03 X10*3/uL (0.00-0.03); Imm Gran Pct Auto 0.5 % (0.0-0.4); Lymphocytes Absolute Auto 1.8 X10*3/uL (1.2-4.9); Mean Corpuscular HGB Conc 34.1 g/dl (31.0-35.0); Mean Corpuscular Hemoglobin 29.7 pg (27.0-33.0); Mean Corpuscular Volume 87.0 fL (80.0-98.0); NRBC Abs Auto 0.000 X10*3/uL (0.0-0.012); NRBC Pct Auto 0.0 /100WBC (0.0-0.2); Platelet Count 265 X10*3/uL (160-400); Red Blood Count 4.31 X10*6/uL (4.20-5.50); White Blood Count 6.4 X10*3/uL (4.8-10.8)
[2024-12-06 14:01] LABS: COVID-19 Test Negative (Negative); IDNOW Serial# 58CA691E
[2024-12-06 14:02] LABS: IDNOW Serial# 55D5AD1C; Influenza B2 Negative (Negative)
[2024-12-06 14:04] LABS: INTERNATIONAL NORM RATIO 0.9 (0.9-1.1); Prothrombin Time 9.8 SEC (10.9-12.4)
[2024-12-06 14:06] LABS: Partial Thromboplastin Time 25.9 SEC (26.7-34.1)
[2024-12-06 14:13] LABS: Alanine Aminotransferase 34 U/L (0-31); Albumin Level 4.3 g/dL (3.5-5.0); Alkaline Phosphatase 120 U/L (39-117); Anion Gap 12 (12-20); Aspartate Amino Transferase 57 U/L (5-31); Blood Urea Nitrogen 14 mg/dL (9-16); Calcium 8.5 mg/dL (8.4-10.2); Carbon Dioxide 23 mmol/L (22-29); Chloride 110 mmol/L (96-108); Creatinine Clr Calc Pharmacy 45.2; Estimated Glomerular Filt Rate 51; Potassium 4.2 mmol/L (3.3-5.1); Sodium 141 mmol/L (135-145); Total Protein 7.8 g/dL (6.5-8.0)
[2024-12-06 14:19] LABS: NT Pro B Type Natriuretic Pept 84.3 pg/mL (<300); Troponin-I High Sensitivity < 2.7 ng/L (<3.5-17.0)
== END 2024-12-06 16:12 | disposition left against medical advice (07) ==
LOC: HO.ED 16:09
PROVIDERS: Physician Assistant; Emergency Provider Emergency Medicine; PCP Internal Medicine
DX: R51.9 Headache, unspecified (principal); R05.9 Cough, unspecified; B20 Human immunodeficiency virus [HIV] disease; Z03.818 Encounter for observation for suspected exposure to other biological agents ruled out
CPT/HCPCS: 36415; 71045; 80053; 83880; 84484; 85025; 85610; 85730; 87502; 87635; 93005; 99281; 99283

== ENCOUNTER → 2024-12-06 13:20 | Outpatient (BNV) | payer MEDICAID, SELFPAY | PROVIDERS: PCP Internal Medicine; Visit Provider Radiology Diagnostic Radiology | DX: M54.2 Cervicalgia (principal); J32.0 Chronic maxillary sinusitis; J32.2 Chronic ethmoidal sinusitis; J34.2 Deviated nasal septum; R05.9 Cough, unspecified | CPT/HCPCS: 70450; 71045; 72125 ==

== ENCOUNTER → 2024-12-06 13:39 | Outpatient (BNV) | payer MEDICAID, SELFPAY | PROVIDERS: Emergency Provider Emergency Medicine; PCP Internal Medicine; Visit Provider Internal Medicine Cardiovascular Disease | DX: R00.0 Tachycardia, unspecified (principal); R07.9 Chest pain, unspecified | CPT/HCPCS: 93010 ==

== ENCOUNTER 2024-12-06 18:01 | Emergency (ER) | payer MEDICAID, SELFPAY ==
--- NOTE | ~2024-12-06 | CT_ITS ---
CLINICAL HISTORY: neck pain CT cervical spine without contrast Comparison: None provided Findings: Vertebral alignment is within normal limits. No significant degenerative change. No acute fractures or dislocations. No acute findings on limited view of the intracranial contents. No cervical fluid collections or masses. Lung apices are clear. C1-2: Mild anterior osteoarthrosis. C5-6: Mild anterior spurring. IMPRESSION: 1. No acute intracranial findings. 2. No acute cervical spine fracture or dislocation. This document has been electronically signed by: Kvng Sheehan MD on 12/06/2024 21:21:32
--- NOTE | ~2024-12-06 | CT_ITS ---
CLINICAL HISTORY: headache CT head without contrast Comparison: None provided Findings: No intra-axial mass, midline shift, hydrocephalus, or acute hemorrhage. No significant atrophy-like change or white matter disease. Mucosal thickening of the left maxillary and left ethmoid sinuses. The orbits are unremarkable. There is no acute fracture. Septal deviation to the right. IMPRESSION: 1. Left maxillary and left ethmoid sinus disease. 2. Septal deviation to the right. 3. No acute intracranial findings. This document has been electronically signed by: Kvng Sheehan MD on 12/06/2024 21:21:41
[2024-12-06 18:31] VITALS: BP 146/68; PULSE 116; RESP 18; TEMP 36.8; O2SAT 99; BMI 28.7
--- NOTE | 2024-12-06 18:38 | ED_ITS ---
HPI - General Adult General Chief complaint: Headache Stated complaint: return for results & treatment Time Seen by Provider: 12/06/24 20:19 Source: patient Limitations: language barrier History of Present Illness ED Provider: Janene Reyes PA-C HPI narrative: 53-year-old female with a history of asthma and HIV, presents with headache and neck pain x1 day. History extremely limited as the patient is quite hysterical, is emotionally labile. She denies injury, inability to move the neck, fever or recent illness. Denies dizziness, nausea, vomiting. Related Data Previous Rx's ?Medication ?Instructions ?Recorded prednisone 20 mg tablet 40 mg (2 x 20 mg) PO DAILY 4 days 03/29/21 #8 tabs prednisone 20 mg tablet 40 mg (2 x 20 mg) PO DAILY # 10 tabs 05/08/22 ketorolac 10 mg tablet 10 mg PO Q6H PRN pain #20 ta bs 12/06/24 Allergies Allergy/AdvReac Type Severity Reaction Status Date / Time vancomycin (VANCOMYCIN) Allergy Intermediate HIVES Verified 12/06/24 18:35 Review of Systems Review of Systems: Yes all other systems are reviewed and are negative Constitutional: Constitutional: Denies fatigue, Denies fever(s) and Reports headache(s) ENT: Denies dizziness, Reports headache(s) and Reports neck pain Cardiovascular: Cardiovascular: Denies chest pain and Denies dyspnea Respiratory: Respiratory: Denies dyspnea Gastrointestinal: Gastrointestinal: Denies nausea and Denies vomiting Musculoskeletal: Musculoskeletal: Reports neck pain Neurologic: Denies dizziness and Reports headache(s) Endocrine: Endocrine: Denies fatigue PMFSH Past Medical History Attestation statement: The following information was validated with the patient. Medical History Asthma HIV (human immunodeficiency virus infection) Social History Social History Patient Tobacco Use Status: Never used Tobacco Advance Directives: No Advance Directives Information Provided: Yes Physical Exam ED Vital Signs: Vital Signs - 24 hr 12/06/24 18:31 12/06/24 22:09 Temperature 98.2 F 98.2 F Pulse Rate 116 H 116 H Respiratory Rate 18 18 Blood Pressure 146/68 H 146/68 H Pulse Oximetry 99 99 Oxygen Delivery Method Room Air Room Air BMI result Body Mass Index 28.7 Const Other: Alert, appears older than stated age, unable to sit still in the chair, she has a neck pillow in place, she is very jittery, with jerking movements at times, crying, Orientation/consciousness: patient oriented x3 Neck Other: Full range of motion Neck: Yes no meningeal signs Resp Effort & Inspection: normal respiratory effort Cardio Other: Normal peripheral perfusion Skin Other: Warm dry no rash Neuro General: patient oriented x3, gait normal, no meningeal signs, no focal motor deficits and CN's II-XI intact bilaterally Psych Other: Emotionally labile, hysterically crying, anxious Course Course Course Narrative: RME: 53-year-old female returns to the ED after leaving without completing treatment earlier in the ED visit. Patient still complains of headache and neck pain. Images ordered Medications Administered Discontinued Medications Generic Name Dose Route Start Last Admin Trade Name Freq PRN Reason Stop Dose Admin Acetaminophen 975 mg 12/06/24 21:12/06/24 21:34 Acetaminophen 325 Mg Tablet PO 12/06/24 21:02 975 mg ONCE ONE Administration Diphenhydramine HCl 25 mg 12/06/24 21:01 12/06/24 21:34 Diphenhydramine Hcl 25 Mg Capsule PO 12/06/24 21:02 25 mg ONCE ONE Administration Ketorolac Tromethamine 15 mg 12/06/24 21:01 12/06/24 21:35 Ketorolac Tromethamine 15 Mg/Ml Vial IM 12/06/24 21:02 15 mg ONCE ONE Administration Prochlorperazine Edisylate 10 mg 12/06/24 21:01 12/06/24 21:35 Prochlorperazine Edisylate 10 Mg/2 Ml Vial IM 12/06/24 21:02 10 mg ONCE ONE Administration Medical Decision Making Medical Decision Making MDM Narrative: 53-year-old female with a history of asthma and HIV, presents with headache and neck pain x1 day. History extremely limited as the patient is quite hysterical, is emotionally labile. She denies injury, inability to move the neck, fever or recent illness. Denies dizziness, nausea, vomiting. Problem: HIV History: Per patient which is very limited I have considered the following differential diagnoses: VAD, meningitis, intracranial hemorrhage, tension headache Plan: Patient's pain and presentation is out of proportion with her exam, hence I ordered imaging of her brain and cervical spine. She is moving the neck freely, she has not had fevers, doubtful to be meningitis. doubtful to be intracranial hemorrhage, she is neurologically intact, there was no trauma she is not on a blood thinner. The patient is extremely emotionally labile, the patient was seen earlier in the emergency department then left because she did not want to wait for assessment. She is now asking to leave again. We are trying to have her stay so she can at least receive results of her imaging. We will likely medicate with an anti-inflammatory and a muscle relaxant. I have independently reviewed the following tests: CT brain:Findings: No intra-axial mass, midline shift, hydrocephalus, or acute hemorrhage. No significant atrophy-like change or white matter disease. Mucosal thickening of the left maxillary and left ethmoid sinuses. The orbits are unremarkable. There is no acute fracture. Septal deviation to the right. IMPRESSION: 1. Left maxillary and left ethmoid sinus disease. 2. Septal deviation to the right. 3. No acute intracranial findings. CT cervical spine:Findings: Vertebral alignment is within normal limits. No significant degenerative change. No acute fractures or dislocations. No acute findings on limited view of the intracranial contents. No cervical fluid collections or masses. Lung apices are clear. C1-2: Mild anterior osteoarthrosis. C5-6: Mild anterior spurring. IMPRESSION: 1. No acute intracranial findings. 2. No acute cervical spine fracture or dislocation. Patient is likely having a tension type headache with the degree of degenerative changes in her cervical spine. Now that I know she does not have an intracranial hemorrhage, we will be medicating with muscle relaxant and Toradol. The patient is adamant about leaving, she wants to be medicated and discharged. Lab Data Labs: Lab Results 12/06/24 Range/Units 19:55 Troponin I High Sens < 2.7 (<3.5-17.0) ng/L Discharge Plan Discharge Clinical Impression: Headache, Cervical arthritis Patient Disposition: Home, Self-Care Instructions: Osteoarthritis (ED), Acute Headache (ED), Neck Pain (ED) Additional Instructions: The CT scan of your brain was normal, the CT scan of your cervical spine revealed that you have arthritis. See home care instructions. Use the ketorolac for your arthritis pain, take it with food. Follow up with your primary care provider. Prescriptions: New ketorolac 10 mg tablet 10 mg PO Q6H PRN (Reason: pain) Qty: 20 0RF Rx Instructions: maximum total duration of 5 days from all oral, intranasal, or parenteral formulations. The patient received an intramuscular dose of Toradol here in the emergency room. No Action prednisone 20 mg tablet 40 mg PO DAILY 4 Days Qty: 8 0RF prednisone 20 mg tablet 40 mg PO DAILY Qty: 10 0RF Interventions: ED Discharge Assessment Last Done: 12/06/24 22:09 Discharge Date/Time: 12/06/24 22:09 Print Language: Luxem[place]ish
--- NOTE | 2024-12-06 19:45 | ECG_ITS ---
Test Reason : CP Blood Pressure : */* mmHG Vent. Rate : 99 BPM Atrial Rate : 99 BPM P-R Int : 122 ms QRS Dur : 78 ms QT Int : 362 ms P-R-T Axes : 66 76 61 degrees QTcB Int : 464 ms Normal sinus rhythm Possible Left atrial enlargement Borderline ECG When compared with ECG of 06-Dec-2024 13:47, No significant change was found Referred By: Randy Rico Electronically Signed By: RAMON EVANGELISTA MD
[2024-12-06 20:21] LABS: Troponin-I High Sensitivity < 2.7 ng/L (<3.5-17.0)
[2024-12-06 22:09] VITALS: BP 146/68; PULSE 116; RESP 18; TEMP 36.8; O2SAT 99
--- NOTE | 2024-12-06 22:09 | PC.NURSE ---
pt medicated per MAY for 12/10 head pain- PA Reyes to bedside, explained findings of imaging with language interpreter- pt verbalizes understanding of dc instructions.
== END 2024-12-06 22:09 | disposition home or self-care (01) ==
PROVIDERS: Physician Assistant; Emergency Provider Emergency Medicine
DX: M47.812 Spondylosis without myelopathy or radiculopathy, cervical region (principal); R51.9 Headache, unspecified; R07.9 Chest pain, unspecified; M54.2 Cervicalgia
CPT/HCPCS: 36415; 70450; 72125; 84484; 93005; 96372; 99283; 99284; J0737; J1885

== ENCOUNTER 2025-01-17 13:49 | Emergency (ER) | payer MEDICAID, SELFPAY | END 2025-01-17 15:50 | disposition left against medical advice (07) | PROVIDERS: Emergency Provider Emergency Medicine; PCP Internal Medicine | DX: M79.642 Pain in left hand (principal) ==